=== PATIENT | male | born 2000 | race Caucasian/White ===

== ENCOUNTER → 2022-07-07 | Outpatient (CLI) | payer OTHER ==
--- NOTE | 2022-07-08 07:58 | MR ---
EXAMINATION TYPE: MR brain wo con DATE OF EXAM: 07/07/2022 COMPARISON: CT brain May 28, 2015 HISTORY: Headaches TECHNIQUE: Multiplanar, multisequence imaging of the brain and brainstem is performed without IV cont rast. FINDINGS: Diffusion weighted images demonstrate no evidence of a recent infarct or other diffusion abnormality. There is no extraaxial fluid collection or significant white matter signal abnormality. The ventricu lar system and cisternal spaces are normal in size and appearance. The brain volume is age appropria te. T2*weighted images show no suspicious intraparenchymal blood product. Midline structures demonstrate normal morphology. The craniocervical junction appears within normal limits. Normal vascular flow voids are present. The visualized sinuses are clear and the globes are i ntact. IMPRESSION: Unremarkable study. Source of headaches is not identified.
--- NOTE | 2022-07-08 08:01 | MR ---
EXAMINATION TYPE: MR shoulder RT wo con DATE OF EXAM: 07/07/2022 COMPARISON: None. HISTORY: Pain in Rt shoulder for 5 years with difficulty raising arm overhead, history of dislocation . TECHNIQUE: Multiplanar, multisequence imaging of the right shoulder is performed without contrast. FINDINGS: Rotator Cuff: Distal supraspinatus and infraspinatus tendons are intact. Bolckow-Sachs type deformit y lateral aspect humeral head. Rotator cuff muscle bulk preserved. Acromioclavicular Joint: No significant narrowing or spurring. No significant capsular hypertrophy. Glenohumeral Joint: No significant spurring. Small effusion. Labrum: The labrum appears grossly intact given limitation of non-arthrogram study. Biceps Tendon: The long head of biceps is in normal location within bicipital groove. Bone marrow signal: No focal abnormal marrow signal is appreciated. Other: No additional significant abnormality is appreciated. IMPRESSION: Bolckow-Sachs type deformity consistent with history of prior dislocation. No bony Banka rt lesion. No rotator cuff or labral tear seen.
== END | disposition home or self-care (01) ==
LOC: RADMRIMAIN 16:24
PROVIDERS: ATTEND Family Medicine
DX: M25.511 Pain in right shoulder (principal); R51.9 Headache, unspecified
CPT/HCPCS: 70551